=== PATIENT | female | born 1990 | race Two or more races ===

== ENCOUNTER 2020-10-10 10:00 | Inpatient (IN) | payer OTHER ==
[~2020-10-10] VITALS: Ht 160 cm; Wt 3.6 kg
[~2020-10-10 10:00] MED LIST: NKA
== END 2020-10-19 18:39 | disposition home or self-care (01) | DRG 785 ==
LOC: O/R 10-17 09:51 → OB/GYN 10-17 16:24 → O/R 10-17 20:30 → OB/GYN 10-19 18:39
PROVIDERS: ADMIT Obstetrics & Gynecology; ATTEND Obstetrics & Gynecology
PROC: 0UB70ZZ Excision of Bilateral Fallopian Tubes, Open Approach (ICD-10-PCS; 2020-10-17)
PROC: 4A1HXFZ Monitoring of Products of Conception, Cardiac Rhythm, External Approach (ICD-10-PCS; 2020-10-17)
PROC: 10D00Z1 Extraction of Products of Conception, Low, Open Approach (ICD-10-PCS; principal; 2020-10-17 20:30)
DX: O34.211 Maternal care for low transverse scar from previous cesarean delivery (principal); Z30.2 Encounter for sterilization; Z37.0 Single live birth; Z3A.39 39 weeks gestation of pregnancy